=== PATIENT | female | born 1965 | race Caucasian/White ===

== ENCOUNTER 2024-06-26 22:04 | Inpatient (IN) | payer MEDICAID ==
[~2024-06-26] VITALS: Ht 160 cm; Wt 65.8 kg
[~2024-06-26 22:04] MED LIST: LEVO-65 MT
[2024-06-26] MEDS: VANCOMYCIN 1G PREMIX 200 ML IV ONE (22:30)
[2024-06-26] MEDS: SODIUM CHLORIDE 0.9% 1000ML BAG (SEPSIS BOLUS) IV ONE (23:19)
[2024-06-26] MEDS: PIPERACILLIN/TAZO 3.375G/50ML 50 ML IV ONE (23:20)
[2024-06-26 23:28] LABS: MEAN CORPUSCULAR HEMOGLOBIN 28.3 pg (28.0-32.0); MEAN CORPUSCULAR HGB CONC 31.9 g/dL (31.0-37.0); MEAN CORPUSCULAR VOLUME 88.7 fL (81.0-99.0); MEAN PLATELET VOLUME 7.2 fl (7.4-10.4); PLATELET 539 x1000/uL (130-400); RED BLOOD CELL COUNT 1.84 mill/uL (4.2-5.4); RED CELL DISTRIBUTION WIDTH 16.5 % (11.6-14.6); WHITE BLOOD COUNT 29.1 x1000/uL (4.5-11.0)
[2024-06-26 23:31] LABS: DIFFERENTIAL COMMENT 1
[2024-06-26 23:36] LABS: HEMATOCRIT. 16.3 % (36.0-48.0); HEMOGLOBIN. 5.2 g/dL (12.0-16.0)
[2024-06-26] MEDS: HYDROMORPHONE HCL/PF 2MG/ML INJ IV ONE (23:38)
[2024-06-26 23:41] LABS: CHLORIDE 98 mEq/L (98-107); POTASSIUM 4.5 mEq/L (3.5-5.1); SODIUM 130 mEq/L (136-145)
[2024-06-26 23:42] LABS: CARBON DIOXIDE 26 mEq/L (21-32)
[2024-06-26 23:47] LABS: GLUCOSE 101 mg/dL (70-105); UREA NITROGEN BLOOD 39 mg/dL (9-23)
[2024-06-26 23:49] LABS: ALANINE AMINOTRANSFERASE 9 IU/L (10-49); ALBUMIN 3.2 g/dL (3.2-4.8); ASPARTATE AMINOTRANSFERASE 16 IU/L (<34); BILIRUBIN DIRECT 0.3 mg/dL (<=3.0); BILIRUBIN TOTAL 0.5 mg/dL (0.1-1.0); PROTEIN TOTAL 6.8 g/dL (6.0-8.3)
[2024-06-26 23:50] LABS: INR 1.3; PROTHROMBIN TIME 14.2 sec (9.6-11.0)
[2024-06-27] VITALS (7 sets, daily range): BP systolic 102–118; BP diastolic 56–76; PULSE 76–85; RESP 17–23; TEMP 36.2512–36.50292; O2SAT 95–98
[2024-06-27 00:02] LABS: TROPONIN I HIGH SENSITIVITY < 4 ng/L (3.0-34)
[2024-06-27 01:21] LABS: PLATELET ESTIMATE NORMAL
[2024-06-27] MEDS ORDERED: NA PHOS,M-B/NA PHOS,DI-BA ENEMA 118ML PR PRN (04:15)
[2024-06-27] MEDS ORDERED: KETOROLAC 15MG/ML VIAL IV PRN (04:15)
[2024-06-27] MEDS ORDERED: CLONIDINE 0.1MG TABLET PO PRN (04:15)
[2024-06-27] MEDS ORDERED: MAGNESIUM/ALUMINUM HYDROXIDE/SIMETHICONE 30ML UDC PO PRN (04:15)
[2024-06-27] MEDS ORDERED: DOCUSATE SODIUM 100MG CAPSULE PO PRN (04:15)
[2024-06-27] MEDS ORDERED: DEXTROSE 50% WATER 50ML SYRINGE IV PRN (04:15)
[2024-06-27] MEDS ORDERED: GUAIFENESIN 200MG/10ML SUGAR FREE UDC PO PRN (04:15)
[2024-06-27] MEDS: SODIUM CHLORIDE 0.9% 1,000 ML IV SCH (04:15)
[2024-06-27] MEDS ORDERED: ONDANSETRON HCL 4MG/2ML INJ IV PRN (04:15)
[2024-06-27] MEDS ORDERED: IPRATROPIUM/ALBUTEROL 0.5-3(2.5)MG/3ML NEB HHN PRN (04:15)
[2024-06-27] MEDS ORDERED: HYDROCODONE/ACETAMINOPHEN 10/325MG TABLET PO PRN (04:15)
[2024-06-27] MEDS ORDERED: ACETAMINOPHEN 325MG TABLET PO PRN (04:15)
[2024-06-27 06:39] LABS: CLARITY URINE CLOUDY (CLEAR); COLOR URINE YELLOW (YELLOW); GLUCOSE URINE NEGATIVE (NEGATIVE); KETONES URINE NEGATIVE (NEGATIVE); LEUKOCYTE ESTERASE URINE 3+ (NEGATIVE); NITRITE URINE POSITIVE (NEGATIVE); OCCULT BLOOD URINE NEGATIVE (NEGATIVE); PROTEIN URINE TRACE (NEGATIVE); SPECIFIC GRAVITY URINE 1.015 (1.005-1.030)
[2024-06-27] MEDS: VANCOMYCIN 1G PREMIX 200 ML IV NR (07:06)
[2024-06-27 07:11] LABS: CREATININE URINE RANDOM 54.2 mg/dL
[2024-06-27 07:13] LABS: *AMPHETAMINES SCREEN URINE NEGATIVE (NEGATIVE)
[2024-06-27 07:15] LABS: *BARBITURATES SCREEN URINE NEGATIVE (NEGATIVE); *BENZODIAZEPINES SCREEN URINE NEGATIVE (NEGATIVE); *COCAINE SCREEN URINE NEGATIVE (NEGATIVE); CANNABINOID URINE SCREEN NEGATIVE (NEGATIVE); ECSTASY MDMA SCREEN URINE NEGATIVE (NEGATIVE); METHADONE URINE SCREEN NEGATIVE (NEGATIVE); OPIATES URINE SCREEN PRESUMPTIVE POSITIVE (NEGATIVE); PHENCYCLIDINE URINE SCREEN NEGATIVE (NEGATIVE)
[2024-06-27 07:35] LABS: BACTERIA URINE 2+; RBC URINE 0-2 /hpf (0-2); SQUAMOUS EPITHELIAL CELL URINE 1+ /lpf (RARE/1+)
[2024-06-27 08:02] LABS: TROPONIN I HIGH SENSITIVITY < 4 ng/L (3.0-34)
[2024-06-27] MEDS: CLINDAMYCIN 600MG PREMIX 50 ML IV SCH ×2 (08:05→14:13)
[2024-06-27] MEDS: PANTOPRAZOLE 40MG DR TABLET PO SCH (08:06)
[2024-06-27] MEDS: BLOOD SUGAR DIAGNOSTIC STRIP TEST SCH (09:00)
[2024-06-27] MEDS: LEVOFLOXACIN 500MG PREMIX 100 ML IV SCH (09:11)
[2024-06-27 12:24] LABS: HEMATOCRIT 28.5 % (36.0-48.0); HEMOGLOBIN 9.1 g/dL (12.0-16.0)
[2024-06-27 12:35] LABS: IRON 29 ug/dL (50-170)
[2024-06-27 12:38] LABS: TOTAL IRON BINDING CAPACITY 434 ug/dl (250-425)
[2024-06-27] MEDS: HYDROMORPHONE HCL/PF 2MG/ML INJ IV PRN (12:40)
[2024-06-27] MEDS ORDERED: NALOXONE HCL 0.4MG/ML VIAL IV PRN (13:30)
[2024-06-27] MEDS: FERROUS SULFATE 325MG TABLET PO SCH (14:11)
[2024-06-27] MEDS: ENOXAPARIN 30MG/0.3ML SYR SUBCUT SCH (14:11)
[2024-06-27 16:28] LABS: TROPONIN I HIGH SENSITIVITY < 4 ng/L (3.0-34)
[2024-06-27] MEDS: INSULIN LISPRO 100 UNITS/ML SUBCUT SCH (21:00)
[2024-06-27] MEDS: ACETAMINOPHEN 325MG TABLET PO PRN (21:26)
[2024-06-27] MEDS: HYDROMORPHONE HCL/PF 2MG/ML INJ IV NR (22:35)
[2024-06-28] VITALS (12 sets, daily range): BP systolic 106–158; BP diastolic 68–91; PULSE 67–89; RESP 15–24; TEMP 36.33624–36.50292; O2SAT 94–100
[2024-06-28 05:19] LABS: CHLORIDE 106 mEq/L (98-107); POTASSIUM 3.7 mEq/L (3.5-5.1); SODIUM 135 mEq/L (136-145)
[2024-06-28 05:20] LABS: CARBON DIOXIDE 22 mEq/L (21-32)
[2024-06-28 05:21] LABS: CALCIUM 9.4 mg/dL (8.7-10.4)
[2024-06-28 05:25] LABS: CREATININE 0.9 mg/dL (0.6-1.0); GLUCOSE 101 mg/dL (70-105)
[2024-06-28 05:26] LABS: UREA NITROGEN BLOOD 35 mg/dL (9-23)
[2024-06-28 05:28] LABS: PHOSPHORUS 2.7 mg/dL (2.5-4.9)
[2024-06-28 05:30] LABS: THYROID STIMULATING HORMONE 1.79 uIU/mL (0.55-4.78)
[2024-06-28 06:30] LABS: HEMATOCRIT. 26.6 % (36.0-48.0); MEAN CORPUSCULAR HGB CONC 33.7 g/dL (31.0-37.0); MEAN CORPUSCULAR VOLUME 88.9 fL (81.0-99.0); MEAN PLATELET VOLUME 7.9 fl (7.4-10.4); PLATELET 564 x1000/uL (130-400); RED BLOOD CELL COUNT 2.99 mill/uL (4.2-5.4); RED CELL DISTRIBUTION WIDTH 16.8 % (11.6-14.6); WHITE BLOOD COUNT 22.8 x1000/uL (4.5-11.0)
[2024-06-28] MEDS: MAGNESIUM 4 G PREMIX 100 ML IV NR (06:43)
[2024-06-28 07:07] LABS: DIFFERENTIAL COMMENT 1
[2024-06-28] MEDS: LEVOFLOXACIN 500MG PREMIX 100 ML IV SCH (07:50)
[2024-06-28] MEDS ORDERED: CEFU500T41 MT (10:21)
[2024-06-28] MEDS: MAGNESIUM 1 G PREMIX 100 ML IV SCH (10:26)
[2024-06-28 19:42] LABS: PLATELET ESTIMATE NORMAL
== END 2024-06-28 22:10 | disposition hospice, home (50) | DRG 710 ==
LOC: ER 22:04 → EDBEDREQ 22:27 → 5EST 06-27 01:28 → EDBEDREQTM 06-27 01:49 → EDBEDREQDT 06-27 01:49 → EDBEDREQSVC 06-27 01:49 → EDBEDREQ 06-27 01:49 → EDBEDREQSVC 06-27 10:45
PROVIDERS: ADMIT Internal Medicine; ATTEND Internal Medicine
PROC: 30233N1 Transfusion of Nonautologous Red Blood Cells into Peripheral Vein, Percutaneous Approach (ICD-10-PCS; 2024-06-27)
PROC: 0QB10ZZ Excision of Sacrum, Open Approach (ICD-10-PCS; principal; 2024-06-28)
DX: A41.9 Sepsis, unspecified organism (principal); L89.154 Pressure ulcer of sacral region, stage 4; C49.22 Malignant neoplasm of connective and soft tissue of left lower limb, including hip; C78.01 Secondary malignant neoplasm of right lung; E87.1 Hypo-osmolality and hyponatremia; D62 Acute posthemorrhagic anemia; D63.8 Anemia in other chronic diseases classified elsewhere; Z51.5 Encounter for palliative care; N39.0 Urinary tract infection, site not specified; E11.9 Type 2 diabetes mellitus without complications; I10 Essential (primary) hypertension; Z79.84 Long term (current) use of oral hypoglycemic drugs; Z79.4 Long term (current) use of insulin; Z79.899 Other long term (current) drug therapy
CPT/HCPCS: 36415; 71045; 80048; 80076; 80305; 81003; 82570; 82962; 83036; 83540; 83550; 83605; 83735; 83880; 83930; 83935; 84100; 84145; 84300; 84443; 84484; 85014; 85018; 85025; 85044; 85379; 86850; 86900; 86920; 87077; 87186; 93005; 93970; 99291; C1893; J1170; J1650; J1956; J2543; J3370; J3475; J3490; J7030; P9016